=== PATIENT | male | born 1985 | race Caucasian/White ===

== ENCOUNTER 2016-07-20 18:26 | Emergency (ER) | payer SELFPAY ==
[~2016-07-20] VITALS: Ht 165.1 cm; Wt 64.4 kg
[2016-07-20 18:45] VITALS: BP 125/72
--- NOTE | 2016-07-20 20:23 | NUR ---
TO ER BED 7
--- NOTE | 2016-07-20 20:25 | NUR ---
31 y/o f w/c/o epigastric pain and chest pain which gets worse after eating. pt on monitor, vss. er niotified.
[2016-07-20] MEDS ORDERED: ALUMINUM HYD/MAG/SIMETHICONE 30 ML UDC PO ONE (20:35)
[2016-07-20] MEDS ORDERED: DICYCLOMINE HCL LIQUID 10 MG/5 ML UDC PO ONE (20:35)
[2016-07-20] MEDS ORDERED: LIDOCAINE VISCOUS 2% 20 ML UDC PO ONE (20:35)
--- NOTE | 2016-07-20 20:40 | NUR ---
PT RESTINGIN BED VERBALIZED A DECREASED IN PAIN, VSS. NO S/S OF DISTRESS NOTED A THE MOMENT.
[2016-07-20 21:08] VITALS: BP 119/75
--- NOTE | 2016-07-20 21:08 | NUR ---
Patient discharged with v/s stable. Written and verbal after care instructions given and explained. Patient alert, oriented and verbalized understanding of instructions. Ambulatory with steady gait. All questions addressed prior to discharge. ID band removed. Patient advised to follow up with PMD THIS WK OR RETURN TO ER IF CONDITION WORSENS. Rx of OMEPRAZOLE 40 MG given. Patient educated on indication of medication including possible reaction and side effects. Opportunity to ask questions provided and answered.
== END 2016-07-20 21:08 | disposition home or self-care (01) ==
LOC: MED 18:26
DX: K29.70 Gastritis, unspecified, without bleeding (principal)
CPT/HCPCS: 81002; 99283